=== PATIENT | female | born 1935 | race African-American/Black ===

== ENCOUNTER 2023-05-30 08:57 | Emergency (ER) | payer MEDICARE, OTHER ==
[2023-05-30 09:14] VITALS: BP 187/72; PULSE 48; RESP 18; TEMP 98.3
[2023-05-30 10:15] LABS: Basophils % (A) 0 %; Eosinophils # (A) 0.1 k/uL (0-0.7); Eosinophils % (A) 3 %; HCT 34.9 % (34.0-46.0); HGB 11.5 gm/dL (11.4-16.0); Lymphocytes # (A) 1.3 k/uL (1.0-4.8); Lymphocytes % (A) 34 %; MCHC 32.9 g/dL (31.0-37.0); MCV 91.2 fL (80.0-100.0); Mean Platelet Volume 8.5; Monocytes # (A) 0.3 k/uL (0-1.0); Monocytes % (A) 7 %; Neutrophils % (A) 53 %; Platelet Count 161 k/uL (150-450); RBC 3.83 m/uL (3.80-5.40); RDW 13.1 % (11.5-15.5); WBC 3.8 k/uL (3.8-10.6)
[2023-05-30 10:30] LABS: ALT 15 U/L (4-34); AST 31 U/L (14-36); African American GFR (CKD) 44 (>60 ml/min/1.73 sqM); Alcohol <10 mg/dL; Alkaline Phosphatase 43 U/L (38-126); Anion Gap 6 mmol/L; Blood Urea Nitrogen 28 mg/dL (7-17); Calcium 9.3 mg/dL (8.4-10.2); Carbon Dioxide 27 mmol/L (22-30); Chloride 104 mmol/L (98-107); Glucose 100 mg/dL (74-99); Non-African American GFR(CKD) 38 (>60 ml/min/1.73 sqM); Sodium 137 mmol/L (137-145); Total Bilirubin 0.8 mg/dL (0.2-1.3); Total Protein 7.2 g/dL (6.3-8.2)
[2023-05-30 11:08] LABS: Appearance,Urine Clear (Clear); Bilirubin,Urine Negative (Negative); Blood,Urine Negative (Negative); Color,Urine Colorless; Glucose,Urine (UA) Negative (Negative); Ketones,Urine Negative (Negative); Leukocyte Esterase,Urine Negative (Negative); Nitrite,Urine Negative (Negative); PH, Urine 6.5 (5.0-8.0); Protein,Urine Trace (Negative); Urobilinogen,Urine <2.0 mg/dL (<2.0)
[2023-05-30 11:25] LABS: Amphetamine Screen,Urine Not Detected (NotDetected); Barbiturate Screen,Urine Not Detected (NotDetected); Benzodiazepines Screen,Urine Not Detected (NotDetected); Cocaine Screen,Urine Not Detected (NotDetected); Methadone Screen, Urine Not Detected (NotDetected); Opiate Screen,Urine Not Detected (NotDetected); Oxycodone Screen, Urine Not Detected (NotDetected); Phencyclidine Screen,Urine Not Detected (NotDetected); Tricyclic Antidepressant,Urine Not Detected (NotDetected); Urn Cannabinoid Scrn Not Detected (NotDetected)
--- NOTE | 2023-05-30 12:49 | ED ---
Psych HPI - General Chief Complaint: Psychiatric Symptoms Stated Complaint: Coughing,Light Head,Weak Time Seen by Provider: 05/30/23 09:27 Source: patient, RN notes reviewed Mode of arrival: wheelchair Limitations: no limitations - History of Present Illness Initial Comments: 87-year-old female presents emergency Department for psychiatric evaluation. Patient states she woke up depressed denies being suicidal. Patient states she has had some depression throughout her life. Patient denies any drug use no call use no other complaints. - Related Data Allergies Allergy/AdvReac Type Severity Reaction Status Date / Time No Known Allergies Allergy Verified 05/30/23 10:11 Review of Systems ROS Statement: Those systems with pertinent positive or pertinent negative responses have been documented in the HPI. ROS Other: All systems not noted in ROS Statement are negative. Past Medical History Past Medical History: COPD, CVA/TIA, Hypertension Past Surgical History: No Surgical Hx Reported Past Psychological History: No Psychological Hx Reported Smoking Status: Never smoker Past Alcohol Use History: Occasional Past Drug Use History: None Reported General Exam Limitations: no limitations General appearance: alert, in no apparent distress Head exam: Present: atraumatic, normocephalic, normal inspection Eye exam: Present: normal appearance, PERRL, EOMI. Absent: scleral icterus, conjunctival injection, periorbital swelling ENT exam: Present: normal exam, normal oropharynx, mucous membranes moist Neck exam: Present: normal inspection, full ROM. Absent: tenderness, meningismus, lymphadenopathy Respiratory exam: Present: normal lung sounds bilaterally. Absent: respiratory distress, wheezes, rales, rhonchi, stridor Cardiovascular Exam: Present: regular rate, normal rhythm, normal heart sounds. Absent: systolic murmur, diastolic murmur, rubs, gallop, clicks Neurological exam: Present: alert Psychiatric exam: Present: depressed Course Vital Signs 05/30/23 09:09 Temperature 98.3 F Pulse Rate 48 L Respiratory 18 Rate Blood Pressure 187/72 O2 Sat by Pulse 100 Oximetry Medical Decision Making - Medical Decision Making Was pt. sent in by a medical professional or institution (, PA, JAVA SECURITY ARCHITECT, urgent care, hospital, or [place] [facility] facility...) When possible be specific @ -No Did you speak to anyone other than the patient for history (EMS, parent, family, police, friend...)? What history was obtained from this source @ -No Did you review nursing and triage notes (agree or disagree)? Why? @ -I reviewed and agree with nursing and triage notes Were old charts reviewed (outside hosp., previous admission, EMS record, old EKG, old radiological studies, urgent care reports/EKG's, [place] [facility] facility records)? Report findings @ -No old charts were reviewed Differential Diagnosis (chest pain, altered mental status, abdominal pain women, abdominal pain men, vaginal bleeding, weakness, fever, dyspnea, syncope, headache, dizziness, GI bleed, back pain, seizure, CVA, palpatations, mental health, musculoskeletal)? @ -nDifferential Mental Health Depression, anxiety, bipolar, psychosis, schizophrenia, borderline personality, situational depression, adjustment disorder, behavioral disorder, brain tumor, malingering, substance abuse, encephalopathy, medication reaction, dementia, hypothyroidism, degenerative neurologic disorder, lupus.... This is not meant to be all-inclusive listle EKG interpreted by me (3pts min.). @ -None X-rays interpreted by me (1pt min.). @ -None done CT interpreted by me (1pt min.). @ -None done U/S interpreted by me (1pt. min.). @ -None done What testing was considered but not performed or refused? (CT, X-rays, U/S, labs)? Why? @ -None What meds were considered but not given or refused? Why? @ -None Did you discuss the management of the patient with other professionals (professionals i.e. , PA, JAVA SECURITY ARCHITECT, lab, RT, psych nurse, social organization professor, motor expert, teacher, ecological technical officer, clinical case manager)? Give summary @ -[EPS who evaluated the patient discussed with psychiatry recommend patient be discharged to see declined Was smoking cessation discussed for >3mins.? @ -No Was critical care preformed (if so, how long)? @ -No Were there social determinants of health that impacted care today? How? (Homelessness, low income, unemployed, alcoholism, drug addiction, transportation, low edu. Level, literacy, decrease access to med. care, prison, rehab)? @ -No Was there de-escalation of care discussed even if they declined (Discuss DNR or withdrawal of care, Hospice)? DNR status @ -No What co-morbidities impacted this encounter? (DM, HTN, Smoking, COPD, CAD, Cancer, CVA, ARF, Chemo, Hep., AIDS, mental health diagnosis, sleep apnea, morbid obesity)? @ -None Was patient admitted / discharged? Hospital course, mention meds given and route, prescriptions, significant lab abnormalities, going to OR and other pe rtinent info. @ -Discharged after psychiatric evaluation patient is not suicidal they recommended patient to be discharged and she agrees his surgical Undiagnosed new problem with uncertain prognosis? @ -No Drug Therapy requiring intensive monitoring for toxicity (Heparin, Nitro, Insulin, Cardizem)? @ -No Were any procedures done? @ -No Diagnosis/symptom? @ -Depression Acute, or Chronic, or Acute on Chronic? @ -Acute Uncomplicated (without systemic symptoms) or Complicated (systemic symptoms)? @ -Uncomplicated Side effects of treatment? @ -No Exacerbation, Progression, or Severe Exacerbation? @ -No Poses a threat to life or bodily function? How? (Chest pain, USA, MS, pneumonia, PE, COPD, DKA, ARF, appy, cholecystitis, CVA, Diverticulitis, Homicidal, Suicidal, threat to staff... and all critical care pts) @ -No - Lab Data Result diagrams: 05/30/23 10:00 05/30/23 10:00 Lab Results 05/30/23 05/30/23 05/30/23 Range/Units 10:00 10:00 10:00 WBC 3.8 (3.8-10.6) k/uL RBC 3.83 (3.80-5.40) m/uL Hgb 11.5 (11.4-16.0) gm/dL Hct 34.9 (34.0-46.0) % MCV 91.2 (80.0-100.0) fL MCH 30.0 (25.0-35.0) pg MCHC 32.9 (31.0-37.0) g/dL RDW 13.1 (11.5-15.5) % Plt Count 161 (150-450) k/uL MPV 8.5 Neutrophils % 53 % Lymphocytes % 34 % Monocytes % 7 % Eosinophils % 3 % Basophils % 0 % Neutrophils # 2.0 (1.3-7.7) k/uL Lymphocytes # 1.3 (1.0-4.8) k/uL Monocytes # 0.3 (0-1.0) k/uL Eosinophils # 0.1 (0-0.7) k/uL Basophils # 0.0 (0-0.2) k/uL Sodium 137 (137-145) mmol/L Potassium 4.0 (3.5-5.1) mmol/L Chloride 104 (98-107) mmol/L Carbon Dioxide 27 (22-30) mmol/L Anion Gap 6 mmol/L BUN 28 H (7-17) mg/dL Creatinine 1.28 H (0.52-1.04) mg/dL Est GFR (CKD-EPI)AfAm 44 (>60 ml/min/1.73 sqM) Est GFR (CKD-EPI)NonAf 38 (>60 ml/min/1.73 sqM) Glucose 100 H (74-99) mg/dL Calcium 9.3 (8.4-10.2) mg/dL Total Bilirubin 0.8 (0.2-1.3) mg/dL AST 31 (14-36) U/L ALT 15 (4-34) U/L Alkaline Phosphatase 43 (38-126) U/L Total Protein 7.2 (6.3-8.2) g/dL Albumin 4.0 (3.5-5.0) g/dL Urine Color Colorless Urine Appearance Clear (Clear) Urine pH 6.5 (5.0-8.0) Ur Specific [place] 1.010 (1.001-1.035) Urine Protein Trace H (Negative) Urine Glucose (UA) Negative (Negative) Urine Ketones Negative (Negative) Urine Blood Negative (Negative) Urine Nitrite Negative (Negative) Urine Bilirubin Negative (Negative) Urine Urobilinogen <2.0 (<2.0) mg/dL Ur Leukocyte Esterase Negative (Negative) Urine Opiates Screen Not Detected (NotDetected) Ur Oxycodone Screen Not Detected (NotDetected) Urine Methadone Screen Not Detected (NotDetected) Ur Propoxyphene Screen Not Detected (NotDetected) Ur Barbiturates Screen Not Detected (NotDetected) U Tricyclic Antidepress Not Detected (NotDetected) Ur Phencyclidine Scrn Not Detected (NotDetected) Ur Amphetamines Screen Not Detected (NotDetected) U Methamphetamines Scrn Not Detected (NotDetected) U Benzodiazepines Scrn Not Detected (NotDetected) Urine Cocaine Screen Not Detected (NotDetected) U Marijuana (THC) Screen Not Detected (NotDetected) Serum Alcohol <10 mg/dL Disposition Clinical Impression: Depression Disposition: HOME SELF-CARE Condition: Stable Instructions (If sedation given, give patient instructions): Depression (ED) Additional Instructions: Please return to the Emergency Department if symptoms worsen or any other concerns. Is patient prescribed a controlled substance at d/c from ED?: No Referrals: Marquez Bales MD [Primary Care Provider] - 1-2 days Time of Disposition: 12:49
== END 2023-05-30 13:19 | disposition home or self-care (01) ==
LOC: EC 08:57
DX: F32.A Depression, unspecified (principal); J44.9 Chronic obstructive pulmonary disease, unspecified; I10 Essential (primary) hypertension; Z86.73 Personal history of transient ischemic attack (TIA), and cerebral infarction without residual deficits
CPT/HCPCS: 36415; 80053; 85025; 81003; 80306; 99285; G0480; 80320